=== PATIENT | female | born 1940 | race Caucasian/White ===

== ENCOUNTER 2016-10-17 18:50 | Emergency (ER) | payer MEDICARE, BC ==
[~2016-10-17] VITALS: Ht 175.3 cm; Wt 108.6 kg
[~2016-10-17 18:50] MED LIST: ACET-2321 PO; CALC-144 PO; DEXT15DR10 BOTH EYES; ENOX40DI SQ; INSU100V8 SQ; LEVO50TA4 PO; LOSA100T44 PO; MULT-806 PO; POLY17PO18 PO; PRAV40TA46 PO; SITA100T12 PO; TRAM50TA53 PO; WARF5TAB76 PO
--- OUTSIDE RECORDS SUMMARY | 2016-10-17 18:55 | XMS REPORT | Continuity of Care Document ---
Author Author [facility] Organization [facility] Address Unknown Phone Unavailable Support Name Relationship Address Phone VALERIE FINCH MD Caregiver [address] [place] [address] Unavailable RAFAT THOMPSON MD Caregiver [address] [place] [address] Unavailable RAFAT THOMPSON MD Caregiver [address] [place] [address] Unavailable MAYDA GONZALEZ Next Of Kin [address] [place] [place] [phone] Insurance Providers Guarantor Ashish Gonzalez Address [address] [place] [address] Email [email or web address] Payer [employer] Select Plan 65 Policy Number [id number] Subscriber's Name Ashish Gonzalez Relationship 18 Self Group Number [id number] Payer Medicare Policy Number [id number] Subscriber's Name Ashish Gonzalez Relationship 18 Self Advance Directives Directive Response Recorded Date/Time Ordered Resuscitation Status Full Code 08/15/16 5:17pm Resuscitation Documents on File Yes 08/18/16 8:03am DPOA for Healthcare Only Yes 08/18/16 8:03am Living Will Yes 08/18/16 8:03am Problems Active Problems Medical Problem Onset Date Status DMII (diabetes mellitus, type 2) Unknown Degenerative arthritis of left knee Unknown GERD (gastroesophageal reflux disease) Unknown Chronic Hyperlipemia Unknown Chronic Hypertension Unknown Chronic Hypothyroidism Unknown Chronic LIZZY (obstructive sleep apnea) Unknown Chronic Obesity (BMI 30-39.9) Unknown Chronic Medications Current Home Medications Medication Dose Units Route Directions Days Qty Instructions Start Date Acetaminophen (Tylenol) 325 Mg Tablet 650 Mg Oral Four Times Daily 100 Tablet 08/17/16 Calcium Carbonate/Vitamin D3 (Calcium 600 + D Tablet) 1 Tab Tablet 1 Tab Oral Twice A Day 01/12/12 Dextran 70/Hypromellose (Tears Pure Drops) 15 Ml Drops 1 Drop Both Eyes Daily 08/15/16 Enoxaparin Sodium (Lovenox) 40 Mg/0.4 Ml Inj 40 Mg Sub-Q Every 24 Hours 5 08/17/16 Insulin Glargine,Hum.rec.anlog (Lantus) 100 Unit/Ml Inj 35 Unit Sub-Q Bedtime 08/15/16 Levothyroxine Sodium (Synthroid) 50 Mcg Tablet 1 Tab Oral Daily BEST IF TAKEN BEFORE BREAKFAST 08/15/16 Losartan Potassium 100 Mg Tablet 100 Mg Oral Daily 08/15/16 Multivitamins (Multivitamin) 1 Tab Tablet 1 Tab Oral Daily Polyethylene Glycol 3350 (Healthylax) 17 Gm Powd.pack 17 G Oral Daily 30 Packet 08/17/16 Pravastatin Sodium 40 Mg Tablet 40 Mg Oral Daily 01/12/12 Sitagliptin Phosphate (Januvia) 100 Mg Tablet 100 Mg Oral Daily 08/15/16 Tramadol Hcl (Ultram) 50 Mg Tablet 50-100 Mg Oral Every 4 Hours as needed for Pain 60 Tablet 08/17/16 Warfarin Sodium (Coumadin) 5 Mg Tablet 5 Mg Oral Give At Noon 30 Tablet Take by mouth, 1 time a day (at NOON). 08/20/16 Past Home Medications Medication Directions Ordered Status Acetaminophen (Tylenol Extra Strength) 500 Mg Tablet, 1 Tab Oral As Needed for Pain 08/15/16 Discontinued Aspirin (Aspir 81) 81 Mg Tablet.dr, 81 Mg Oral Daily 07/24/09 Discontinued B Complex , 04/18/11 Discontinued Calcium + D , Twice A Day 04/18/11 Discontinued Coumadin , 5 Mg Oral 04/18/11 Discontinued Glipizide (Glipizide Er) 2.5 Mg/Bottle Tab.osm.24, 2.5 Mg Oral Daily Discontinued Lipitor , 1 Oral Daily 07/24/09 Discontinued Lisinopril , 04/18/11 Discontinued Lisinopril/Hydrochlorothiazide (Lisinopril-Hctz 20-12.5 Tab) 1 Tab Tablet, 1 Tab Oral Daily 06/30/11 Discontinued Meloxicam (Mobic) 15 Mg Tablet, 15 Mg Oral Daily 01/12/12 Discontinued Meloxicam , 15 Mg 04/18/11 Discontinued Metformin Hcl (Glucophage) 850 Mg Tablet, 850 Mg Oral Twice A Day 07/24/09 Discontinued Multivitamin , 04/18/11 Discontinued Multivitamin , 04/18/11 Discontinued Pravastatin , 40 Mg 04/18/11 Discontinued Tylenol , 04/18/11 Discontinued Social History Social History Problem Response Recorded Date/Time Onset Date Status Reason for Hospitalization Left TKA 08/20/2016 3:56pm Not Applicable Not Applicable Chewing Tobacco Status No 08/16/2016 6:30am Not Applicable Not Applicable Hx Substance Use No 08/16/2016 6:30am Not Applicable Not Applicable Hx Alcohol Use No 08/16/2016 6:30am Not Applicable Not Applicable Has the pt used tobacco in the last 12 months No 08/16/2016 6:30am Not Applicable Not Applicable Query Response Start Date Stop Date Smoking Status Never smoker Hospital Discharge Instructions Instructions: Care Instructions: Reason for Hospitalization: Left TKA I was in the hospital because (patient own words): left knee total replacement Discharge Diet: Resume normal diet as tolerated Discharge Activity: Continue the exercises you were given in the hospital three times a day. Your therapist will provide you with a home therapy program prior to your hospital discharge. As you feel stronger, increase the number of repetitions you do in each session. Please check with us before you swim, use a whirlpool, drive or ride a bicycle. Follow Up Appointments: Follow up as scheduled Pending Lab / Results: No Pending Lab Patient Instructions: Driving may be resumed once you are no longer taking narcotic medications and feel you can safely operate the vehicle. You may wish to practice in an empty parking lot at first. Keep in mind that your reaction time will be delayed for up to 6 weeks after surgery. Contact your surgeon for antibiotics to take before having dental work. Wound/Incision Care: In most cases, a Mepilex dressing will be placed at the time of surgery. This dressing will not need to be covered while showering. Leave dressing in place until your follow-up appointment as long as it remains clean, dry and stuck down well around the edges. Call your Doctor if you encounter a problem with your dressing. Please avoid submerging your incision until it is completely healed, once the Mepilex dressing is removed. This includes bathtubs, swimming pools, and hot tubs. DO NOT USE ALCOHOL, PEROXIDE, OR OINTMENTS of any kind on your incision. Pain Scale Utilized to Educate Patient: 0-10 Pain Scale Pain Management/Treatment: Ice packs may be used, and will also help with the pain. You will be given a prescription for pain. Expected Signs/Symptoms: Some swelling around the incision, as well as in your feet and legs is normal. To help with this, elevate your feet on a footstool when sitting in a chair, and do the ankle pumps and circles whenever you are sitting still. Muscle action helps to move collected fluid out of the tissues and improve circulation. Ice packs may be used, and will also help with the pain. Report any persistent swelling, calf tenderness, increase in pain, or pain in the calf with warmth, or redness to your doctor. Notify Physician If: Report any complications to my office immmediately. This includes excessive bleeding, wound breakdown, redness around the wound, uncontrolled pain, or fever over 101 on 3 different measurements. Eat a balanced diet and get plenty of rest. During Business Hours:: If you have any questions or concerns, please call during regular office hours ([phone]). After Business Hours:: If you have any problems or need to reach a physician after hours or on the weekend please call the hospital's main number [phone] to have your physician paged. Condition at time of discharge: Good Plan of Care Discharge Date 08/20/16 4:00pm Disposition 03 TO [facility] NOT [facility] ([facility]) Instructions/Education Provided [facility] Postop Instructions [facility] General Instructions Prescriptions See Medication Section Additional Instructions/Education FOLLOW UP WITH DR THOMPSON 09-05-16 @ 1:00PM Care Plan and Goals See Discharge Instructions Section Functional Status Query Response Date Recorded Mobility Status Ambulatory w/assist August 20, 2016 3:56pm Assistive Devices Cane August 20, 2016 3:56pm Activity Limitations None August 20, 2016 3:56pm Feeding Ability Independent August 20, 2016 3:56pm Toileting Ability Independent August 20, 2016 3:56pm Grooming Ability Independent August 20, 2016 3:56pm Dressing Ability Independent August 20, 2016 3:56pm Driving Ability Dependent August 20, 2016 3:56pm Housework Ability Independent August 20, 2016 3:56pm Meal Preparation Ability Independent August 20, 2016 3:56pm Stair Climbing Ability Independent August 20, 2016 3:56pm Ability to complete ADL's impeded by Impaired Mobility August 20, 2016 3:56pm Cognitive/Perceptual Impairments Impaired vision August 20, 2016 3:56pm Visual Assistive Devices Glasses With patient August 19, 2016 8:00am Hearing Assistive Devices Left hearing aid With patient August 19, 2016 8:00am Preferred Method of Learning Reading Listening August 19, 2016 8:00am Allergies, Adverse Reactions, Alerts Allergen Type Severity Reaction Status Last Updated dextromethorphan HBr Allergy Unknown Active 08/16/16 chlorpheniramine maleate Allergy Unknown Active 08/16/16 Lisinopril Adverse Reaction Unknown COUGH Active 08/16/16 Guaifenesin Allergy Unknown Active 08/16/16 Paregoric Allergy Unknown difficulty breathing Active 08/16/16 opium Allergy Severe Active 08/16/16 Hydrochlorothiazide Adverse Reaction Unknown COUGH Active 08/16/16 Chlorpheniramine Allergy Unknown Active 08/16/16 Immunizations Immunization Event Date Type Not Given Reason Dose Number Lot Number Quantitative Associate VIS Given Pneumococcal conjugate PCV 13 08/16/16 Administered 1 [id number] Pfizer Query Response on File Recorded Date/Time Hx Influenza Vaccination Y 201508/16/16 6:30am Hx Pneumococcal Vaccination No 08/16/16 6:30am Hx Influenza Vaccination Y 201508/16/16 6:30am Influenza Vaccine Hx 04/201608/17/16 1:25pm Vital Signs Acute Vital Signs Vital Response Date/Time Temperature (Fahrenheit) 96.0 deg F (96.8 - 99.1) 08/20/2016 1:30pm Temperature (Calculated Celsius) 35.57375 degrees C (36.0 - 37.3) 08/20/2016 1:30pm Temperature Source Oral 08/20/2016 1:30pm Pulse Rate (adult) 88 bpm (60 - 100) 08/20/2016 1:30pm Respiratory Rate 18 breaths/min (10 - 20) 08/20/2016 1:30pm O2 Sat by Pulse Oximetry 98 % (90 - 100) 08/20/2016 1:35pm Oxygen Delivery Method Room Air 08/20/2016 1:35pm Oxygen Delivery Method Nasal Cannula 08/16/2016 2:00pm Oxygen Flow Rate 1.00 L/min 08/19/2016 11:17pm Blood Pressure 139/61 mm Hg 08/20/2016 1:30pm Blood Pressure Source Automatic Cuff 08/20/2016 1:30pm Height (Feet) 5 feet 08/20/2016 8:09am Height (Inches) 9.00 inches 08/20/2016 8:09am Weight (Kilograms) 112.600 kg 08/20/2016 1:32pm Body Mass Index (BMI) 36.1 08/16/2016 5:51am Results Laboratory Results Test Name Result Units Flags Reference Collection Date/Time Result Date/ Time Comments White Blood Count 8.3 T/MM3 4.5-11.0 08/19/2016 4:08/19/2016 5: 42am Red Blood Count 3.08 M/MM3 L 4.00-5.20 08/19/2016 4:08/19/2016 5: 42am Hemoglobin 10.7 GM/DL L 12-16 08/19/2016 4:08/19/2016 5:42am Hematocrit 32.8 % L 36-46 08/19/2016 4:08/19/2016 5:42am Mean Corpuscular Volume 106.5 UM3 H 80-100 08/19/2016 4:08/19/2016 5:42am Mean Corpuscular Hemoglobin 34.7 UUG H 26-34 08/19/2016 4:2016 5:42am Mean Corpuscular Hemoglobin Concent 32.6 GM/DL 31-37 08/19/2016 4:08/19/2016 5:42am RDW Standard Deviation 44.2 FL 36.9-50.2 08/19/2016 4:08/19/2016 5 :42am Platelet Count 167 T/MM3 130-400 08/19/2016 4:08/19/2016 5:42am Mean Platelet Volume 13.2 UM3 H 9.4-12.4 08/19/2016 4:08/19/2016 5: 42am Prothromb Time International Ratio 1.38 H 0.76-1.04 08/20/2016 4:0908/20/2016 5:22am THERAPUTIC RANGE=2.00-3.00 FOR ANTI-THROMBOSIS THERAPUTIC RANGE=2.50-3.50 FOR IMPLANTED VALVE Icterus Index < 2 0-7 08/18/2016 4:15am 08/18/2016 6:16am Chemistry Specimen Hemolysis < 15 0-25 08/18/2016 4:08/18/2016 6 :16am 0-25: Specimen Exhibited No Hemolysis. Turbidity < 20 0-20 08/18/2016 4:08/18/2016 6:16am Sodium Level 140 MEQ/L 134-144 08/18/2016 4:08/18/2016 6:16am Potassium Level 4.1 MEQ/L 3.6-5 08/18/2016 4:08/18/2016 6:16am Chloride Level 102 MEQ/L 98-107 08/18/2016 4:08/18/2016 6:16am Carbon Dioxide Level 32 MEQ/L H 22-30 08/18/2016 4:08/18/2016 6: 16am Anion Gap 6 MEQ/L 5-08/18/2016 4:08/18/2016 6:16am Blood Urea Nitrogen 13.0 MG/DL 7-08/18/2016 4:08/18/2016 6: 16am Creatinine 0.7 MG/DL 0.7-1.2 08/18/2016 4:08/18/2016 6:16am BUN/Creatinine Ratio 19 RATIO 6-26 08/18/2016 4:08/18/2016 6:16am Glomerular Filtration Rate Calc 82 08/18/2016 4:08/18/2016 6: 16am Glucose Level 142 MG/DL H 65-110 08/18/2016 4:08/18/2016 6:16am Calculated Osmolality 271 MOSM/KG 261-280 08/18/2016 4:08/18/2016 6:16am Calcium Level 9.3 MG/DL 8.4-10.2 08/18/2016 4:1508/18/2016 6:16am Glucometer 154 mg/dL H 65-110 08/20/2016 3:01pm 08/20/2016 3:08pm Name: ASHISH GONZALEZ Iris Unit #: [id number] : 1940 Sex: F Admit Date: 08/16/16 Loc / Svc: SRG Discharge Date: DIAGNOSTIC IMAGING REPORT Report #: [id number] [facility] JOSEPH Benitez Indication: ITS.REASON: POSTOP left knee replacement PROCEDURE: KNEE LEFT 2 VIEW: Encounter: Initial Comparison: None Findings: Postoperative changes of left total knee replacement are seen. There is expected postoperative subcutaneous gas. No evidence of hardware failure or acute fracture. No retained radiopaque surgical instruments or sponges. Overlying material causing artifact. Impression: New left total knee prosthesis without evidence of immediate complication. . Procedures Procedure Status Date Provider(s) Total replacement of left knee joint Completed 08/16/16 RAFAT THOMPSON MD Encounters Encounter Location Arrival/Admit Date Discharge/Depart Date Attending Provider Discharged Inpatient [facility] 08/16/16 5:25am 08/20/16 4:00pm RAFAT THOMPSON MD Registered Clinic [facility] 08/14/16 8:09am ALPHONSO SÁNCHEZ MD Discharged Recurring [facility] 07/30/16 3:00pm 07/30/16 5:00pm MICHAEL NEWTON MD
--- OUTSIDE RECORDS SUMMARY | 2016-10-17 18:55 | XMS REPORT | Continuity of Care Document ---
Author Author [facility] Organization [facility] Address Unknown Phone Unavailable Allergies Medications Problems Procedures Results Encounters ACCT No. Visit Date/Time Discharge Status Pt. Type Provider Facility Loc./Unit Complaint [id number] 09/24/2013 14:09:00 09/24/2013 23 :59:59 CLS Outpatient [id number] 09/03/2013 13:36:00 09/03/2013 23 :59:59 CLS Outpatient [id number] 08/10/2013 11:54:00 08/10/2013 23 :59:59 CLS Outpatient [id number] 06/01/2013 10:56:00 06/01/2013 23 :59:59 CLS Outpatient
--- OUTSIDE RECORDS SUMMARY | 2016-10-17 18:56 | XMS REPORT | Referral Summary ---
Author Author [facility] Organization [facility] Address Unknown Phone Unavailable Care Team Providers Care Mold Sheet Cleaner Name Role Phone AmanuelvalerieBlaze Primary Care Physician [phone] Encounter VC Date(s): 07/10/16 - 07/10/16 [facility] [address] [place] [id number] Discharge Diagnosis: Benign essential hypertension (disorder) Discharge Diagnosis: DM II [Diabetes mellitus type II] WO CMP NT [facility] Discharge Diagnosis: Thyroid disease/goiter Discharge Disposition: 01-Home or Self Care Attending Physician: Sujata Lo PA-C Admitting Physician: Sujata Lo PA-C Vital Signs Most recent to 1 oldest [Reference Range]: Blood Pressure 182/84 mmHg [90-140/60-90 mmHg] *HI* (07/10/16 8:09 AM) Problem List Condition Effective Dates Status Health Status Informant Acute low back Active pain(Confirmed) Alopecia(Confirmed) Active Benign essential Active hypertension (disorder)(Confirmed ) BPV (benign Active positional vertigo)(Confirmed) CTS (carpal tunnel Active syndrome)(Confirmed) Cataracts(Confirmed) 2000 Active DM II [Diabetes Active mellitus type II] WO CMP NT [facility](Confirmed) Blood Clots Active Lungs/Legs(Confirmed )1 Thyroid Active disease/goiter(Confi rmed) GERD without Active esophagitis(Confirme d) buttermaker continuous churn current Active use of anticoagulant(Confir med) Hearing Active Loss(Confirmed) Acute pain of right Active hip(Confirmed) Hyperthyroidism(Conf Active irmed) Adult Active hypothyroidism(Confi rmed) Obstructive sleep Active apnea, adult(Confirmed) Dermatophytosis of Active nail(Confirmed) Osteoarthrosis(Confi 09/1997 Active rmed) Overweight(Confirmed Active ) Pain in Active limb(Confirmed) Pure Active hypercholesterolemia (disorder)(Confirmed ) Sensorineural Active hearing loss, unspecified(Confirme d) Chicken Active pox(Confirmed) 1LONG TERM CURRENT USE ANTICOAGUL. See Conversion Document Allergies, Adverse Reactions, Alerts Substance Reaction Severity Status hydrochlorothiazide cough Active lisinopril cough Active Medications amoxicillin 500 mg oral capsule See Instructions, Take 6 caps one hour before dental procedure and 3 caps six hours after procedure, # 9 caps, 1 Refill(s), other reason (Rx) Start Date: 04/13/16 Status: Ordered Aspir 81 81 mg, Oral, Daily, 0 Refill(s) Start Date: 12/18/13 Status: Ordered Calcium 600+D 1 tabs, Oral, Daily, 0 Refill(s) Start Date: 12/18/13 Status: Ordered Januvia 100 mg oral tablet 100 mg 1 tabs, Oral, Daily, # 30 tabs, 0 Refill(s), samples given to patient (Rx ) Start Date: 07/10/16 Status: Ordered Lantus 100 units/mL subcutaneous solution See Instructions, INJECT 35 UNITS SUB-Q AT BEDTIME, # 10 mL, [facility]: [facility] Start Date: 07/03/16 Status: Ordered levothyroxine 50 mcg (0.05 mg) oral tablet See Instructions, TAKE 1 TABLET BY MOUTH DAILY, # 90 tabs, 1 Refill(s), eRx: [facility] , TAKE 1 TABLET BY MOUTH DAILY Start Date: 04/09/16 Status: Ordered losartan 100 mg oral tablet See Instructions, TAKE 1 TABLET BY MOUTH EVERY DAY, # 90 tabs, eRx: [facility] , TAKE 1 TABLET BY MOUTH EVERY DAY Start Date: 05/01/16 Status: Ordered meloxicam 7.5 mg oral tablet See Instructions, TAKE 1 TABLET BY MOUTH DAILY NEEDED FOR PAIN MILD(1-3), # 90 tabs, 1 Refill(s), Pharmacy: [facility] , TAKE 1 TABLET BY MOUTH DAILY NEEDED FOR PAIN MILD(1-3) Start Date: 03/06/16 Status: Ordered Miscellaneous DME DME Item FREESTYLE LITE TEST STRIPS CHECK BLOOD SUGARS 3 TIMES WEEKLY DX: E11.9, See Instructions, # 1 boxes, 2 Refill(s), Pharmacy: [facility] [id number], FREESTYLE LITE TEST STRIPS; CHECK BLOOD SUGARS 3 TIMES WEEKLY; DX: E11.9 , Supply Start Date: 09/02/15 Status: Ordered multivitamin Daily, 0 Refill(s) Start Date: 01/06/15 Status: Ordered omeprazole 20 mg oral delayed release capsule 20 mg 1 caps, Oral, Daily, # 90 caps, 1 Refill(s), Pharmacy: [facility] [id number], 1 caps Oral Daily Start Date: 03/06/16 Status: Ordered pravastatin 40 mg oral tablet See Instructions, TAKE 1 TABLET BY MOUTH AT BEDTIME DAILY, # 90 tabs, 1 Refill(s ), Pharmacy: [facility] [id number], TAKE 1 TABLET BY MOUTH AT BEDTIME DAILY Start Date: 03/06/16 Status: Ordered Motion DisplaysS SYR/NDL 29G 0.5ML U/F See Instructions, USE TO INJECT LANTUS AT BEDTIME, # 100 unknown unit, eRx: [facility] [id number], USE TO INJECT LANTUS AT BEDTIME Start Date: 05/21/16 Status: Ordered Results Chemistry Most recent to 1 oldest [Reference Range]: Sodium Lvl [135-144 144 mEq/L mEq/L] (07/10/16 9:08 AM) Potassium Lvl 4.5 mEq/L [3.5-5.2 mEq/L] (07/10/16 9:08 AM) Chloride [99-111 106 mEq/L mEq/L] (07/10/16 9:08 AM) CO2 [22-31 mEq/L] 30 mEq/L (07/10/16 9:08 AM) AGAP [3-20] 8 (07/10/16 9:08 AM) BUN [10-20 mg/dL] 15 mg/dL (07/10/16 9:08 AM) Glucose Lvl [70-99 173 mg/dL mg/dL] *HI* (07/10/16 9:08 AM) Creatinine Lvl 0.78 mg/dL [0.57-1.11 mg/dL] (07/10/16 9:08 AM) eGFR [>60 mL/min] >60 mL/min 1 (07/10/16 9:08 AM) Calcium Lvl 9.4 mg/dL [8.9-10.5 mg/dL] (07/10/16 9:08 AM) Albumin Lvl [3.4-4.8 3.8 gm/dL gm/dL] (07/10/16 9:08 AM) Total Protein 6.0 gm/dL [6.0-7.6 gm/dL] (07/10/16 9:08 AM) Globulin [1.8-4.0 2.2 gm/dL gm/dL] (07/10/16 9:08 AM) ALT [0-55 U/L] 25 U/L (07/10/16 9:08 AM) AST [5-34 U/L] 23 U/L (07/10/16 9:08 AM) Alk Phos [40-150 59 U/L U/L] (07/10/16 9:08 AM) Bili Total [0.2-1.2 0.7 mg/dL mg/dL] (07/10/16 9:08 AM) TSH with Reflex Free 1.18 T4 [0.35-4.94] (07/10/16 9:08 AM) Hgb A1c [4.1-5.6 %] 6.9 % *HI* (07/10/16 9:08 AM) eAvg Glucose 151.3 mg/dL (07/10/16 9:08 AM) 1Result Comment: Multiply eGFR results by 1.21 for race. Immunizations Given and Recorded Vaccine Date Status Refusal Reason tetanus/diphth/pertuss (Tdap) adult/adol 04/19/15 Given hepatitis B adult vaccine 01/25/94 Recorded hepatitis B adult vaccine 08/31/93 Recorded hepatitis B adult vaccine 07/31/93 Recorded influenza virus vaccine, inactivated 03/06/16 Given influenza virus vaccine, inactivated 04/19/15 Given influenza virus vaccine, inactivated1 04/13/14 Recorded influenza virus vaccine, live 04/06/13 Given influenza virus vaccine, live 04/24/12 Given mumps-rubella virus vaccine 05/04/70 Recorded pneumococcal 13-valent conjugate vaccine 08/30/14 Given pneumococcal 23-polyvalent vaccine 11/14/09 Recorded rubella virus vaccine 02/01/75 Recorded tetanus-diphth toxoids (Td) adult/adol 05/08/05 Recorded 1Location History: See scanned document Procedures Procedure Date Related Diagnosis Body Site Monafilament Examination 08/23/11 Lid Surgery - lower 09/2005 Lid Surgery - upper 03/2005 gall bladder 2004 Carpal tunnel release1 1997 Carpal tunnel release Epistaxis Eye Lid Surgeries Facial Surgery Hysterectomy Hysterectomy Tonsillectomy 1Both Hands Social History Social History Type Response Smoking Status Never smoker Assessment and Plan Extracted from: Title: Office Visit Note- T2DM Author: Sujata Lo PA-C Date: 07/10 Assessment/Plan Benign essential hypertension (disorder) Will check some labs today. BP was elevated today. Continue to monitor. Ordered: Office Visit Level 5 Est 16490 DM II [Diabetes mellitus type II] WO CMP NT [facility] I spent along time talking with the pt about her DM. I think she is in need of mealtime insulin, but she does notwant to do more injections or check her BG more often than a couple times a day like she is doing now. Talked with her about differentoral medications that are available, which may help some with her blood sugars, but I do not expect them to get her A1C down to acceptable range. Sheseems to be doing well with her diet at this time, and is to continue seeing the RD.The pt does want to try another oral medication. After some discussion, she would like to try Januvia. Provided the pt with samples for 3 weeks, which is enough to get her through until she sees Dr. Mojica on 08/03/16. D/w pt that at that time, he may decide if it is helping with her BG levels, or if she needs to start on Novolog/Humalog. Pt is agreeable and voiced understanding. A1C today. Ordered: sitaGLIPtin, 100 mg 1 tabs, Oral, Daily, # 30 tabs, 0 Refill(s), samples given to patient (Rx) Hemoglobin A1c Office Visit Level 5 Est 47383 Thyroid disease/goiter Will also check TSH today as well,since she has been having issues losing weight. Ordered: Office Visit Level 5 Est 24444
--- OUTSIDE RECORDS SUMMARY | 2016-10-17 18:56 | XMS REPORT | Referral Summary ---
Author Author [facility], [facility] Organization [facility] Address Unknown Phone Unavailable Care Team Providers Care Senior Warehouse Clerk Name Role Phone Blaze Mojica Primary Care Physician [phone] Encounter Date(s): 08/03/16 - 08/03/16 [facility] [place] [id number] Discharge Diagnosis: Type 2 diabetes mellitus with diabetic neuropathy, with long-term current use of insulin Discharge Diagnosis: Benign essential hypertension (disorder) Discharge Diagnosis: GERD without esophagitis Discharge Diagnosis: Abnormal EKG Discharge Diagnosis: Osteoarthritis of left knee Discharge Diagnosis: Preop examination Discharge Diagnosis: Medication monitoring encounter Discharge Diagnosis: Obstructive sleep apnea, adult Discharge Diagnosis: Thyroid disease/goiter Discharge Diagnosis: Pure hypercholesterolemia (disorder) Discharge Diagnosis: H/O thromboembolism Discharge Disposition: 01-Home or Self Care Attending Physician: Michael Mojica MD Admitting Physician: Michael Mojica MD Vital Signs Most recent to 1 oldest [Reference Range]: Temperature Tympanic 36.9 degC [36.6-38.1 degC] (08/03/16 9:08 AM) Peripheral Pulse 86 bpm Rate [60-100 bpm] (08/03/16 9:08 AM) Respiratory Rate 15 br/min [14-20 br/min] (08/03/16 9:08 AM) Blood Pressure 148/78 mmHg [90-140/60-90 mmHg] *HI* (08/03/16 9:08 AM) SpO2 98 % (08/03/16 9:08 AM) Problem List Condition Effective Dates Status Health Status Informant Acute low back Active pain(Confirmed) Alopecia(Confirmed) Active Benign essential Active hypertension (disorder)(Confirmed ) BPV (benign Active positional vertigo)(Confirmed) CTS (carpal tunnel Active syndrome)(Confirmed) Cataracts(Confirmed) 2000 Active DM II [Diabetes Active mellitus type II] WO CMP NT [facility](Confirmed) Blood Clots Active Lungs/Legs(Confirmed )1 Thyroid Active disease/goiter(Confi rmed) GERD without Active esophagitis(Confirme d) alf current Active use of anticoagulant(Confir med) Hearing [...] 1 tabs, Oral, Daily, # 30 tabs, 3 Refill(s), Pharmacy: [id number] Start Date: 08/03/16 Status: Ordered Lantus 100 units/mL subcutaneous solution See Instructions, INJECT 35 UNITS SUB-Q AT BEDTIME, # 10 mL, eRx: [facility] [id number] Start Date: 07/30/16 Status: Ordered levothyroxine 50 mcg (0.05 mg) oral tablet See Instructions, TAKE 1 TABLET BY MOUTH DAILY, # 90 tabs, 1 Refill(s), eRx: [facility] [id number], TAKE 1 TABLET BY MOUTH DAILY Start Date: 04/09/16 Status: Ordered losartan 100 mg oral tablet See Instructions, TAKE 1 TABLET BY MOUTH EVERY DAY, # 90 tabs, eRx: [facility] [id number] Start Date: 07/27/16 Status: Ordered losartan 100 mg oral tablet See Instructions, TAKE 1 TABLET BY MOUTH EVERY DAY, # 90 tabs, eRx: [facility] [id number] Start Date: 07/27/16 Status: Ordered Miscellaneous DME DME Item FREESTYLE LITE TEST STRIPS CHECK BLOOD SUGARS 3 TIMES WEEKLY DX: E11.9, See Instructions, # 1 boxes, 2 Refill(s), Pharmacy: [facility] [id number], FREESTYLE LITE TEST STRIPS; CHECK BLOOD SUGARS 3 TIMES WEEKLY; DX: E11.9 , Supply Start Date: 09/02/15 Status: Ordered multivitamin Daily, 0 Refill(s) Start Date: 01/06/15 Status: Ordered pravastatin 40 mg oral tablet See Instructions, TAKE 1 TABLET BY MOUTH AT BEDTIME DAILY, # 90 tabs, 1 Refill(s ), Pharmacy: [facility] [id number], TAKE 1 TABLET BY MOUTH AT BEDTIME DAILY Start Date: 03/06/16 Status: Ordered Knowledge Factor SYR/NDL 29G 0.5ML U/F See Instructions, USE TO INJECT LANTUS AT BEDTIME, # 100 unknown unit, eRx: [facility] [id number], USE TO INJECT LANTUS AT BEDTIME Start Date: 05/21/16 Status: Ordered Results Hematology Most recent to 1 oldest [Reference Range]: WBC [4.8-10.8 10.7 10*3/uL 10*3/uL] (08/03/16 11:03 AM) RBC [4.00-5.20] 4.42 (08/03/16 11:03 AM) Hgb [12.0-16.0 14.9 gm/dL gm/dL] (08/03/16 11:03 AM) Hct [37.0-47.0 %] 46.3 % (08/03/16 11:03 AM) MCV [82.0-99.0 fL] 104.8 fL *HI* (08/03/16 11:03 AM) MCH [27.0-32.0 pg] 33.7 pg *HI* (08/03/16 11:03 AM) MCHC [32.0-36.0 32.2 gm/dL gm/dL] (08/03/16 11:03 AM) RDW [11.5-14.5 %] 12.3 % (08/03/16 11:03 AM) Platelet [150-400 256 10*3/uL 10*3/uL] (08/03/16 11:03 AM) MPV [8.8-14.8 fL] 12.3 fL (08/03/16 11:03 AM) Immature 0.2 % Granulocytes (08/03/16: AM) [0.0-1.0 %] Neutrophils [51-75 60 % %] (08/03/16 11:03 AM) Lymphocytes [20-46 29 % %] (08/03/16:03 AM) Monocytes [4-11 %] 9 % (08/03/16: AM) Eosinophils [0-4 %] 2 % (08/03/16 AM) Basophils [0-2 %] 0 % (08/03/16:03 AM) Neutro Absolute 6.45 [1.90-7.00] (08/03/16:03 AM) Lymph Absolute 3.07 [0.80-3.30] (08/03/16:03 AM) [place] Absolute 0.95 [0.30-1.00] (08/03/16: AM) Eos Absolute 0.21 [0.00-0.50] (08/03/16 11:03 AM) Baso Absolute 0.04 [0.00-0.20] (08/03/16 11:03 AM) Chemistry Most recent to 1 oldest [Reference Range]: Sodium Lvl [135-144 145 mEq/L mEq/L] *HI* (08/03/16:03 AM) Potassium Lvl 4.9 mEq/L [3.5-5.2 mEq/L] (08/03/16: AM) Chloride [99-111 106 mEq/L mEq/L] (08/03/16: AM) CO2 [22-31 mEq/L] 28 mEq/L (08/03/16 11:03 AM) AGAP [3-20] 11 (08/03/16 11:03 AM) BUN [10-20 mg/dL] 17 mg/dL (08/03/16 11:03 AM) Glucose Lvl [70-99 110 mg/dL mg/dL] *HI* (08/03/16 11:03 AM) Creatinine Lvl 0.84 mg/dL [0.57-1.11 mg/dL] (08/03/16 11:03 AM) eGFR [>60 mL/min] >60 mL/min 1 (08/03/16 11:03 AM) Calcium Lvl 10.4 mg/dL [8.9-10.5 mg/dL] (08/03/16 11:03 AM) 1Result Comment: Multiply eGFR results by [...] smoker Assessment and Plan Extracted from: Title: New Patient Visit Author: Michael Mojica MD Date: 08/03/16 Impression and Plan Diagnosis Benign essential hypertension (disorder) ([id number]-HG I10, Discharge, Medical). GERD without esophagitis (CBJ71-DJ K21.9, Discharge, Medical). H/O thromboembolism (UUT75-NN Z86.718, Discharge, Medical). Medication monitoring encounter (BMJ54-NK Z51.81, Discharge, Medical). Obstructive sleep apnea, adult (SKV47-AH G47.33, Discharge, Medical). Osteoarthritis of left knee (DHT13-HA M17.9, Discharge, Medical). Preop examination (GJE88-BL Z01.818, Discharge, Medical). Pure hypercholesterolemia (disorder) (OUH85-QO E78.00, Discharge, Medical). Thyroid disease/goiter (NZK17-VD E07.9, Discharge, Medical). Type 2 diabetes mellitus with diabetic neuropathy, with long-term current use of insulin (GLT04-UR E11.40, Discharge, Medical). Abnormal EKG (ZJB43-SS R94.31, Discharge, Medical). Orders Orders (Selected) Outpatient Orders Future (On Hold) Albumin/Creatinine Ratio, Urine: BMP: CBC w/ Differential: .
--- OUTSIDE RECORDS SUMMARY | 2016-10-17 18:57 | XMS REPORT | Referral Summary ---
[facility] Address Unknown Phone Unavailable Care Team Providers Care Manager Chemical Name Role Phone Brooke Kelley Primary Care Physician [phone] Encounter Date(s): 04/13/16 - 04/13/16 [facility] [place] [place] [id number] Discharge Diagnosis: Acute low back pain Discharge Diagnosis: Benign essential hypertension (disorder) Discharge Diagnosis: Pure hypercholesterolemia (disorder) Discharge Diagnosis: GERD without esophagitis Discharge Diagnosis: Obstructive sleep apnea, adult Discharge Diagnosis: Alopecia Discharge Diagnosis: DM II [Diabetes mellitus type II] WO CMP NT [facility] Discharge Diagnosis: Adult hypothyroidism Discharge Disposition: 01-Home or Self Care Attending Physician: Branden Kelley MD Admitting Physician: Branden Kelley MD Vital Signs Most recent to 1 oldest [Reference Range]: Peripheral Pulse 76 bpm Rate [60-100 bpm] (04/13/16 10:36 AM) Blood Pressure 132/80 mmHg [90-140/60-90 mmHg] (04/13/16 10:36 AM) SpO2 96 % (04/13/16 10:36 AM) Problem List Condition Effective Dates Status Health Status Informant Acute low back Active pain(Confirmed) Alopecia(Confirmed) Active Benign essential Active hypertension (disorder)(Confirmed ) BPV (benign Active positional vertigo)(Confirmed) CTS (carpal tunnel Active syndrome)(Confirmed) Cataracts(Confirmed) 2000 Active DM II [Diabetes Active mellitus type II] WO CMP NT [facility](Confirmed) Blood Clots Active Lungs/Legs(Confirmed )1 Thyroid Active disease/goiter(Confi rmed) GERD without Active esophagitis(Confirme d) intermediate current Active use of anticoagulant(Confir med) Hearing [...] 0 Refill(s) Start Date: 12/18/13 Status: Ordered Lantus 100 units/mL subcutaneous solution See Instructions, inject 35 units SUBCUTANEOUSLY AT BEDTIME, # 10 mL, 1 Refill(s ), Pharmacy: [facility] [id number], inject 35 units SUBCUTANEOUSLY AT BEDTIME Start Date: 03/06/16 Status: Ordered levothyroxine 50 mcg (0.05 mg) oral tablet See Instructions, TAKE 1 TABLET BY MOUTH DAILY, # 90 tabs, 1 Refill(s), eRx: [facility] [id number], TAKE 1 TABLET BY MOUTH DAILY Start Date: 04/09/16 Status: Ordered losartan 100 mg oral tablet See Instructions, TAKE 1 TABLET BY MOUTH EVERY DAY, # 90 tabs, eRx: [facility] [id number], TAKE 1 TABLET BY MOUTH EVERY DAY Start Date: 02/03/16 Status: Ordered meloxicam 7.5 mg oral tablet See Instructions, TAKE 1 TABLET BY MOUTH DAILY NEEDED FOR PAIN MILD(1-3), # 90 tabs, 1 Refill(s), Pharmacy: [facility] [id number], TAKE 1 TABLET BY MOUTH DAILY NEEDED FOR PAIN MILD(1-3) Start Date: 03/06/16 Status: Ordered Miscellaneous DME DME Item FREESTYLE LITE TEST STRIPS CHECK BLOOD SUGARS 3 TIMES WEEKLY DX: E11.9, See Instructions, # 1 boxes, 2 Refill(s), Pharmacy: [facility] [id number], FREESTYLE LITE TEST STRIPS; CHECK BLOOD SUGARS 3 TIMES WEEKLY; DX: E11.9 , Supply Start Date: 09/02/15 Status: Ordered multivitamin Daily, 0 Refill(s) Start Date: 01/06/15 Status: Ordered omeprazole 20 mg oral delayed release capsule 20 mg 1 caps, Oral, Daily, # 90 caps, 1 Refill(s), Pharmacy: [facility] [id number], 1 caps Oral Daily Start Date: 03/06/16 Status: Ordered pravastatin 40 mg oral tablet See Instructions, TAKE 1 TABLET BY MOUTH AT BEDTIME DAILY, # 90 tabs, 1 Refill(s ), Pharmacy: [facility] [id number], TAKE 1 TABLET BY MOUTH AT BEDTIME DAILY Start Date: 03/06/16 Status: Ordered [employer] SYR/NDL 29G 0.5ML U/F See Instructions, USE TO INJECT LANTUS AT BEDTIME, # 100 unknown unit, 2 Refill( s), eRx: [facility] [id number], USE TO INJECT LANTUS AT BEDTIME Start Date: 12/16/14 Status: Ordered Results No data available for this section Immunizations Vaccine Date Refusal Reason tetanus/diphth/pertuss (Tdap) adult/adol 04/19/15 hepatitis B adult vaccine 01/25/94 hepatitis B adult vaccine 08/31/93 hepatitis B adult vaccine 07/31/93 influenza virus vaccine, inactivated 03/06/16 influenza virus vaccine, inactivated 04/19/15 influenza virus vaccine, inactivated1 04/13/14 influenza virus vaccine, live 04/06/13 influenza virus vaccine, live 04/24/12 mumps-rubella virus vaccine 05/04/70 pneumococcal 13-valent conjugate vaccine 08/30/14 pneumococcal 23-polyvalent vaccine 11/14/09 rubella virus vaccine 02/01/75 tetanus-diphth toxoids (Td) adult/adol 05/08/05 1Location History: See scanned document Procedures Procedure Date Related Diagnosis Body Site Monafilament Examination 08/23/11 Lid Surgery - lower 09/2005 Lid Surgery - upper 03/2005 gall bladder 2004 Carpal tunnel release1 1997 Carpal tunnel release Epistaxis Eye Lid Surgeries Facial Surgery Hysterectomy Hysterectomy Tonsillectomy 1Both Hands Social History Social History Type Response Smoking Status Never smoker Assessment and Plan Extracted from: Title: Ambulatory Patient Education Author: Branden Kelley MD Date: Family Medicine Back Exercises Back exercises help treat and prevent back injuries. The goal of back exercises is to increase the strength of your abdominal and back muscles and the flexibility of your back. These exercises should be started when you no longer have back pain. Back exercises include: Pelvic Tilt. Lie on your back with your knees bent. Tilt your pelvis until the lower part of your back is against the floor. Hold this position 5 to 10 sec and repeat 5 to 10 times. Knee to Chest. Pull first 1 knee up against your chest and hold for 20 to 30 seconds, repeat this with the other knee, and then both knees. This may be done with the other leg straight or bent, whichever feels better. Sit-Ups or Curl-Ups. Bend your knees 90 degrees. Start with tilting your pelvis, and do a partial, slow sit-up, lifting your trunk only 30 to 45 degrees off the floor. Take at least 2 to 3 seconds for each sit-up. Do not do sit-ups with your knees out straight. If partial sit-ups are difficult, simply do the above but with only tightening your abdominal muscles and holding it as directed. Hip-Lift. Lie on your back with your knees flexed 90 degrees. Push down with your feet and shoulders as you raise your hips a couple inches off the floor; hold for 10 seconds, repeat 5 to 10 times. Back arches. Lie on your stomach, propping yourself up on bent elbows. Slowly press on your hands, causing an arch in your low back. Repeat 3 to 5 times. Any initial stiffness and discomfort should lessen with repetition over time. Shoulder-Lifts. Lie face down with arms beside your body. Keep hips and torso pressed to floor as you slowly lift your head and shoulders off the floor. Do not overdo your exercises, especially in the beginning. Exercises may cause you some mild back discomfort which lasts for a few minutes; however, if the pain is more severe, or lasts for more than 15 minutes, do not continue exercises until you see your caregiver. Improvement with exercise therapy for back problems is slow. See your caregivers for assistance with developing a proper back exercise program. This information is not intended to replace advice given to you by your health care provider. Make sure you discuss any questions you have with your health care provider. Document Released: 08/01/2005 Document Revised: 09/15/2012 Document Reviewed: [employer] Patient Information 2016 [employer]. No follow up information was provided. Extracted from: Title: Office Visit Note Author: Branden Kelley MD Date: 04/13/16 Assessment/Plan Acute low back pain The patient's issue is nearly or completely resolved. There is no further issues or testing desired by them at this time. Seeing Dr. Abreu. Adult hypothyroidism This issue was reviewed, appears stable, and current therapy continued except as mentioned. Appropriate lab was reviewed from the most recent appropriate entry and lab was ordered if needed in the cpoe/nursing orders, and follow up recommended generally in 90 days and no later then six months. Lab stable. Alopecia To [facility] when interested. We discussed several options for treatment for this condition. The patient declined any changes or other treatments at this time. Benign essential hypertension (disorder) This issue was reviewed, appears stable, and current therapy continued except as mentioned. Appropriate lab was reviewed from the most recent appropriate entry and lab was ordered if needed in the cpoe/nursing orders, and follow up recommended generally in 90 days and no later then six months. The patient reports their blood pressure has been stable at home and is not having any significant or related problems. There has been no chest pain, chest pressure, soa/segal. DM II [Diabetes mellitus type II] WO CMP NT [facility] The patient was notified for the need for regular quarterly f/u of their diabetes. Further any pertinent medication, supplies, etc were refilled. Additionally, they are to have annual eye exams, foot exams, and regular care. Lab stable. GERD without esophagitis This issue was reviewed, appears stable, and current therapy continued except as mentioned. Appropriate lab was reviewed from the most recent appropriate entry and lab was ordered if needed in the cpoe/nursing orders, and follow up recommended generally in 90 days and no later then six months. Obstructive sleep apnea, adult This issue was reviewed, appears stable, and current therapy continued except as mentioned. Appropriate lab was reviewed from the most recent appropriate entry and lab was ordered if needed in the cpoe /nursing orders, and follow up recommended generally in 90 days and no later then six months. Assessment/Plan 1.LIZZY on CPAP 75-year-old female appears to have well-controlledmoderately severe obstructive sleep apnea after a series ofpast including most recent CPAP retitration. By downloadinformation and her subjective reporting,no changes are requiredat this time. However, she does have an APAP system and I do recommend taking advantage of that unit byreturning her to apressure bracket ofAPAP 9-13 cm. This well allow for some slight adjustments in pressure based on demandand provide additional flexibility in thethat the continued obstructive eventsseen at the end of her CPAP re-titration were not due to the leakuncovered at that time. I'm comfortable enough having her return on an annual basis, though she is encouraged to call back if she has any issues with her system or its interface. Use of CPAP/BiPAP is encouraged for all sleep. The patient is encouraged to replace CPAP supplies regularly and keep a sanitary system. The patient and any accompanying family expressed understanding and agreement with this plan after having had adequate time to ask and have questions answered. [1] Pure hypercholesterolemia (disorder) This issue was reviewed, appears stable, and current therapy continued except as mentioned. Appropriate lab was reviewed from the most recent appropriate entry and lab was ordered if needed in the cpoe/nursing orders, and follow up recommended generally in 90 days and no later then six months. Lab stable.
--- OUTSIDE RECORDS SUMMARY | 2016-10-17 18:57 | XMS REPORT | Referral Summary ---
Author Author [facility] Organization [facility] Address Unknown Phone Unavailable Care Team Providers Care Bereavement Counselor Name Role Phone Blaze Mojica Primary Care Physician [phone] Encounter VC Date(s): 09/03/16 - 09/03/16 [facility] [place] [id number]- Discharge Diagnosis: Postoperative anemia Discharge Diagnosis: Hyperthyroidism Discharge Diagnosis: Urine frequency Discharge Diagnosis: S/P left knee surgery Discharge Diagnosis: Benign essential hypertension (disorder) Discharge Diagnosis: DM II [Diabetes mellitus type II] WO CMP NT [facility]CNTR Discharge Disposition: 01-Home or Self Care Attending Physician: Michael Mojica MD Admitting Physician: Michael Mojcia MD Vital Signs Most recent to 1 oldest [Reference Range]: Temperature Oral 36.7 degC [35.8-37.3 degC] (09/03/16 10:21 AM) Peripheral Pulse 80 bpm Rate [60-100 bpm] (09/03/16 10:21 AM) Respiratory Rate 16 br/min [14-20 br/min] (09/03/16 10:21 AM) Blood Pressure 146/74 mmHg [90-140/60-90 mmHg] *HI* (09/03/16 10:21 AM) Problem List Condition Effective Dates Status Health Status Informant Acute low back Active pain(Confirmed) Alopecia(Confirmed) Active Benign essential Active hypertension (disorder)(Confirmed ) BPV (benign Active positional vertigo)(Confirmed) CTS (carpal tunnel Active syndrome)(Confirmed) Cataracts(Confirmed) 2000 Active DM II [Diabetes Active mellitus type II] WO CMP NT [facility](Confirmed) Blood Clots Active Lungs/Legs(Confirmed )1 Thyroid Active disease/goiter(Confi rmed) GERD without Active esophagitis(Confirme d) prison current Active use of anticoagulant(Confir med) Hearing [...] hydrochlorothiazide cough Active lisinopril cough Active Medications acetaminophen 650 mg, Oral, QID, 0 Refill(s) Start Date: 08/22/16 Status: Ordered amoxicillin 500 mg oral capsule See Instructions, Take 6 caps one hour before dental procedure and 3 caps six hours after procedure, # 9 caps, 1 Refill(s), other reason (Rx) Start Date: 04/13/16 Status: Ordered Calcium 600+D 1 tabs, Oral, BID, 0 Refill(s) Start Date: 12/18/13 Status: Ordered Januvia 100 mg oral tablet 100 mg 1 tabs, Oral, Daily, # 30 tabs, 3 Refill(s), Pharmacy: [facility] [id number] Start Date: 08/03/16 Status: Ordered Lantus 100 units/mL subcutaneous solution See Instructions, INJECT 35 UNITS SUB-Q AT BEDTIME, # 10 mL, eRx: [facility] [id number] Start Date: 07/30/16 Status: Ordered levothyroxine 50 mcg (0.05 mg) oral tablet See Instructions, TAKE 1 TABLET BY MOUTH DAILY, # 90 tabs, 1 Refill(s), eRx: [facility] [id number], TAKE 1 TABLET BY MOUTH DAILY Start Date: 04/09/16 Status: Ordered losartan 100 mg oral tablet See Instructions, TAKE 1 TABLET BY MOUTH EVERY DAY, # 90 tabs, eRx: [facility] [id number] Start Date: 07/27/16 Status: Ordered losartan 100 mg oral tablet See Instructions, TAKE 1 TABLET BY MOUTH EVERY DAY, # 90 tabs, eRx: [facility] [id number] Start Date: 07/27/16 Status: Ordered Lovenox 40 mg/0.4 mL injectable solution 40 mg, SubCutaneous, Daily, 0 Refill(s) Start Date: 08/22/16 Status: Ordered MiraLax 17 g, Oral, Daily, 0 Refill(s) Start Date: 08/22/16 Status: Ordered Miscellaneous DME DME Item FREESTYLE LITE TEST STRIPS CHECK BLOOD SUGARS 3 TIMES WEEKLY DX: E11.9, See Instructions, # 100 Each, 2 Refill(s), Pharmacy: [facility] [id number], FREESTYLE LITE TEST STRIPS; CHECK BLOOD SUGARS 3 TIMES WEEKLY; DX : E11.9, Supply Start Date: 08/07/16 Status: Ordered multivitamin Daily, 0 Refill(s) Start Date: 01/06/15 Status: Ordered nystatin 100,000 units/g topical powder 1 brinda, Topical, BID, # 15 g, 1 Refill(s), Pharmacy: [facility] [id number] Start Date: 08/07/16 Stop Date: 09/04/16 Status: Ordered pravastatin 40 mg oral tablet See Instructions, TAKE 1 TABLET BY MOUTH AT BEDTIME DAILY, # 90 tabs, 1 Refill(s ), Pharmacy: [facility] [id number], TAKE 1 TABLET BY MOUTH AT BEDTIME DAILY Start Date: 03/06/16 Status: Ordered Tears Naturale 1 drops, Eye-Both, Daily, 0 Refill(s) Start Date: 08/22/16 Status: Ordered traMADol 50 mg oral tablet 1-2 tabs, Oral, q4hr, as needed for pain, 0 Refill(s) Start Date: 08/22/16 Status: Ordered [employer] SYR/NDL 29G 0.5ML U/F See Instructions, USE TO INJECT LANTUS AT BEDTIME, # 100 unknown unit, eRx: [facility] [id number], USE TO INJECT LANTUS AT BEDTIME Start Date: 05/21/16 Status: Ordered warfarin 5 mg oral tablet 5 mg 1 tabs, Oral, Daily, 0 Refill(s) Start Date: 08/22/16 Status: Ordered Results Hematology Most recent to 1 oldest [Reference Range]: WBC [4.8-10.8 10.1 10*3/uL 10*3/uL] (09/03/16 11:15 AM) RBC [4.00-5.20] 4.05 (09/03/16 11:15 AM) Hgb [12.0-16.0 13.7 gm/dL gm/dL] (09/03/16:15 AM) Hct [37.0-47.0 %] 43.0 % (09/03/16:15 AM) MCV [82.0-99.0 fL] 106.2 fL *HI* (09/03/16:15 AM) MCH [27.0-32.0 pg] 33.8 pg *HI* (09/03/16:15 AM) MCHC [32.0-36.0 31.9 gm/dL gm/dL] *LOW* (09/03/16:15 AM) RDW [11.5-14.5 %] 13.1 % (09/03/16 11:15 AM) Platelet [150-400 403 10*3/uL 10*3/uL] *HI* (09/03/16 11:15 AM) MPV [8.8-14.8 fL] 12.1 fL (09/03/16 11:15 AM) Immature 0.2 % Granulocytes (09/03/16:15 AM) [0.0-1.0 %] Neutrophils [51-75 71 % %] (09/03/16 11:15 AM) Lymphocytes [20-46 19 % %] *LOW* (09/03/16:15 AM) Monocytes [4-11 %] 8 % (09/03/16:15 AM) Eosinophils [0-4 %] 2 % (09/03/16:15 AM) Basophils [0-2 %] 1 % (09/03/16 11:15 AM) Neutro Absolute 7.14 [1.90-7.00] *HI* (09/03/16:15 AM) Lymph Absolute 1.90 [0.80-3.30] (09/03/16 11:15 AM) Ida Absolute 0.77 [0.30-1.00] (09/03/16 11:15 AM) Eos Absolute 0.20 [0.00-0.50] (09/03/16 11:15 AM) Baso Absolute 0.05 [0.00-0.20] (09/03/16 11:15 AM) Chemistry Most recent to 1 oldest [Reference Range]: Sodium Lvl [135-144 140 mEq/L mEq/L] (09/03/16 11:15 AM) Potassium Lvl 4.4 mEq/L [3.5-5.2 mEq/L] (09/03/16 11:15 AM) Chloride [99-111 101 mEq/L mEq/L] (09/03/16 11:15 AM) CO2 [22-31 mEq/L] 28 mEq/L (09/03/16 11:15 AM) AGAP [3-20] 11 (09/03/16 11:15 AM) BUN [10-20 mg/dL] 14 mg/dL (09/03/16 11:15 AM) Glucose Lvl [70-99 118 mg/dL mg/dL] *HI* (09/03/16 11:15 AM) Creatinine Lvl 0.84 mg/dL [0.57-1.11 mg/dL] (09/03/16 11:15 AM) eGFR [>60 mL/min] >60 mL/min 1 (09/03/16 11:15 AM) Calcium Lvl 10.3 mg/dL 2 [8.4-10.2 mg/dL] *HI* (09/03/16 11:15 AM) 1Result Comment: Multiply eGFR results by 1.21 for race. 2Result Comment: Please note reference range change effective 08/10/2016. Urinalysis Most recent to 1 oldest [Reference Range]: UA Color Yellow (09/03/16 11:27 AM) UA Appear Sl Cloudy (09/03/16 11:27 AM) UA pH [5.0-8.0] 7.5 (09/03/16 11:27 AM) UA Leuk Est Trace [Negative] *ABN* (09/03/16 11:27 AM) UA Nitrite Negative [Negative] (09/03/16 11:27 AM) UA Protein Negative [Negative] (09/03/16 11:27 AM) UA Glucose Negative [Negative] (09/03/16 11:27 AM) UA Ketones Negative [Negative] (09/03/16 11:27 AM) UA Urobilinogen 0.2 mg/dL [<=1.0 mg/dL] (09/03/16 11:27 AM) UA Bili [Negative] Negative (09/03/16 11:27 AM) UA Blood [Negative] Trace *ABN* (09/03/16 11:27 AM) UA Spec Grav 1.020 [1.003-1.030] (09/03/16 11:27 AM) Type Clean Catch (09/03/16 11:27 AM) UA WBC [0-4] 0-2 (09/03/16 11:27 AM) UA RBC [0-2] 2-5 (09/03/16 11:27 AM) Epithelial Cells 10-20 (09/03/16 11:27 AM) UA Bacteria Occasional *ABN* (09/03/16 11:27 AM) UA Yeast Present *ABN* (09/03/16 11:27 AM) Immunizations Given and Recorded Vaccine Date Status [...] virus vaccine 05/04/70 Recorded pneumococcal 13-valent conjugate vaccine2 08/16/16 Recorded pneumococcal 13-valent conjugate vaccine 08/30/14 Given pneumococcal 23-polyvalent vaccine 11/14/09 Recorded rubella virus vaccine 02/01/75 Recorded tetanus-diphth toxoids (Td) adult/adol 05/08/05 Recorded 1Location History: See scanned document 2Location History: [place] [facility] [place] Procedure Date Related Diagnosis Body Site Total knee arthroplasty1 08/16/16 Monafilament Examination 08/23/11 Lid Surgery - lower 09/2005 Lid Surgery - upper 03/2005 gall bladder 2004 Carpal tunnel release2 1997 Carpal tunnel release Epistaxis Eye Lid Surgeries Facial Surgery Hysterectomy Hysterectomy Tonsillectomy 1Left total knee arthroplasty 2Both Hands Social History Social History Type Response Smoking Status Never smoker Assessment and Plan Extracted from: Title: Post-procedure Follow Up Author: Michael Mojica MD Date: Impression and Plan Diagnosis Benign essential hypertension (disorder) ([id number]-[id number] I10, Discharge, Medical). DM II [Diabetes mellitus type II] WO CMP NT [facility] (IWT69-YN E11.9, Discharge , Medical). Hyperthyroidism (ZOM37-NS E05.90, Discharge, Medical). Postoperative anemia (IGL38-WN D64.9, Discharge, Medical). S/P left knee surgery (ABX53-YZ Z98.890, Discharge, Medical). Urine frequency (FRR19-SV R35.0, Discharge, Medical). Orders Orders (Selected) Outpatient Orders Future (On Hold) BMP: CBC w/ Differential: Urinalysis with Culture if Indicated: .
--- OUTSIDE RECORDS SUMMARY | 2016-10-17 18:57 | XMS REPORT | Referral Summary ---
Author Author [facility] Organization [facility] Address Unknown Phone Unavailable Care Team Providers Care Meal Room Hand Name Role Phone Blaze Mojica Primary Care Physician [phone] Encounter VC Date(s): 08/07/16 - 08/07/16 [facility] [address] [place] [address] Discharge Diagnosis: Yeast infection of the skin Discharge Diagnosis: Benign essential hypertension (disorder) Discharge Disposition: 01-Home or Self Care Attending Physician: Michael Mojica MD Admitting Physician: Michael oMjica MD Vital Signs Most recent to 1 oldest [Reference Range]: Peripheral Pulse 82 bpm Rate [60-100 bpm] (08/07/16 2:06 PM) Blood Pressure 190/80 mmHg [90-140/60-90 mmHg] *HI* (08/07/16 2:06 PM) Problem List Condition Effective Dates Status Health Status Informant Acute low back Active pain(Confirmed) Alopecia(Confirmed) Active Benign essential Active hypertension (disorder)(Confirmed ) BPV (benign Active positional vertigo)(Confirmed) CTS (carpal tunnel Active syndrome)(Confirmed) Cataracts(Confirmed) 2000 Active DM II [Diabetes Active mellitus type II] WO CMP NT [facility](Confirmed) Blood Clots Active Lungs/Legs(Confirmed )1 Thyroid Active disease/goiter(Confi rmed) GERD without Active esophagitis(Confirme d) [facility] current Active use of anticoagulant(Confir med) Hearing [...] Daily, # 30 tabs, 3 Refill(s), Pharmacy: [facility] Start Date: 08/03/16 Status: Ordered Lantus 100 units/mL subcutaneous solution See Instructions, INJECT 35 UNITS SUB-Q AT BEDTIME, # 10 mL, eRx: [facility] [id number] Start Date: 07/30/16 Status: Ordered levothyroxine 50 mcg (0.05 mg) oral tablet See Instructions, TAKE 1 TABLET BY MOUTH DAILY, # 90 tabs, 1 Refill(s), eRx: [facility] [id number], TAKE 1 TABLET BY MOUTH DAILY Start Date: 04/09/16 Status: Ordered losartan 100 mg oral tablet See Instructions, TAKE 1 TABLET BY MOUTH EVERY DAY, # 90 tabs, eRx: [facility] [id number] Start Date: 07/27/16 Status: Ordered losartan 100 mg oral tablet See Instructions, TAKE 1 TABLET BY MOUTH EVERY DAY, # 90 tabs, eRx: [facility] [id number] Start Date: 07/27/16 Status: Ordered Miscellaneous DME DME Item FREESTYLE LITE TEST STRIPS CHECK BLOOD SUGARS 3 TIMES WEEKLY DX: E11.9, See Instructions, # 100 Each, 2 Refill(s), Pharmacy: [facility], FREESTYLE LITE TEST STRIPS; CHECK BLOOD SUGARS 3 TIMES WEEKLY; DX : E11.9, Supply Start Date: 08/07/16 Status: Ordered multivitamin Daily, 0 Refill(s) Start Date: 01/06/15 Status: Ordered nystatin 100,000 units/g topical powder 1 brinda, Topical, BID, # 15 g, 1 Refill(s), Pharmacy: [facility] [id number] Start Date: 08/07/16 Stop Date: 09/04/16 Status: Ordered pravastatin 40 mg oral tablet See Instructions, TAKE 1 TABLET BY MOUTH AT BEDTIME DAILY, # 90 tabs, 1 Refill(s ), Pharmacy: [facility] [id number], TAKE 1 TABLET BY MOUTH AT BEDTIME DAILY Start Date: 03/06/16 Status: Ordered [employer] SYR/NDL 29G 0.5ML U/F See Instructions, USE TO INJECT LANTUS AT BEDTIME, # 100 unknown unit, eRx: [facility] [id number], USE TO INJECT LANTUS AT BEDTIME Start Date: 05/21/16 Status: Ordered Results No data available for this section Immunizations Given and Recorded Vaccine Date Status [...] smoker Assessment and Plan Extracted from: Title: OV Author: Michael Mojica MD Date: 08/07/16 Impression and Plan Diagnosis Yeast infection of the skin (MEC55-US B37.2, Discharge, Medical). Benign essential hypertension (disorder) (EJD72-EO I10, Discharge, Medical). Orders Orders (Selected) Prescriptions Prescribed nystatin 100,000 units/g topical powder: 1 brinda, Topical, BID, 15 g, 1 Refill(s).
[2016-10-17 19:30] VITALS: Ht 175.3 cm; Wt 108.6 kg
--- NOTE | 2016-10-17 19:44 | NUR ---
BLOOD SUGAR FSBS: 139
[2016-10-17] MEDS ORDERED: ACET325T51 PO (19:45)
--- NOTE | 2016-10-17 19:47 | ERPDOC ---
Departure Disposition Decision Date: Oct 17, 2016 Disposition Decision Time: 22:39 Disposition: 01 DISCHARGED HOME, SELF-CARE Impression Impression Impression: Primary Impression: Umbilical hernia Obstruction and gangrene presence: without obstruction or gangrene Qualified Codes: K42.9 - Umbilical hernia without obstruction or gangrene Severity: Moderate Condition: Stable Seen By: Physician only Referrals: VALERIE FINCH MD (Family) Follow-up for discussion of referral to surgery Patient Instructions: Umbilical Hernia (ED) Problems/Meds/Labs Reviewed?: Yes Medications reviewed and manag: Yes Follow up care ordered?: Yes Mental Status: Alert, Oriented Scripts Tramadol HCl (Tramadol HCl) 50 Mg Tablet 1-2 TAB PO Q6H Y for PAIN, #20 TAB Prov: ZACK CASEY MD 10/17/16 HPI - Abdominal Pain General Chief Complaint: Abdominal Pain Stated Complaint: SEVERE ABDOMINAL PAIN Time Seen by Provider: 19:47 HPI - Abdominal Pain Allergies: Coded Allergies: opium (Verified Allergy, Severe, 10/17/16) FROM PAREGORIC chlorpheniramine (Verified Allergy, Unknown, 10/17/16) chlorpheniramine maleate (Verified Allergy, Unknown, 10/17/16) dextromethorphan HBr (Verified Allergy, Unknown, 10/17/16) guaifenesin (Verified Allergy, Unknown, 10/17/16) paregoric (Verified Allergy, Unknown, difficulty breathing, 10/17/16) hydrochlorothiazide (Verified Adverse Reaction, Unknown, COUGH, 10/17/16) PER H&P DATED 08-03-16 lisinopril (Verified Adverse Reaction, Unknown, COUGH, 10/17/16) PER H&P DATED 08/03/16 Past History Past Medical History Metabolic: diabetes, hypercholesterolemia, hypertension, hypothyroidism Cardiac: echocardiogram Respiratory: pulmonary embolus Surgical History General: gallbladder, tonsils Reproductive/: hysterectomy Family History Family PMH: FOUND: diabetes, hypertension Vaccines Hx Influenza Vaccination: Yes (2016) Hx Pneumococcal Vaccination: No Social History Does patient use chewing tobac: No Second Hand Exposure: No Substance Use Type: does not use Physical Exam General Vitals and Pain First Documented Vital Signs Date Time Temp Pulse Resp B/P Pulse Ox O2 Delivery O2 Flow Rate FiO2 10/17/16 19:30 98.2 90 16 173/74 96 Room Air Weight: Kilograms: 108.600 Height (feet): 5 Height (inches): 9.00 Triage Pain Scale: Progress Results/Orders Orders Procedure Category Date Status Time Bgm (Ed) EDM 10/17/16 Transmitted 19:42 Iv Lock (Ed Only) EDM 10/17/16 Transmitted 20:08 Cbc W/Auto LAB 10/17/16 Complete Diff-Reflex Manual 20:08 Cmp - Comprehensive LAB 10/17/16 Complete Metabolic 20:08 Lipase LAB 10/17/16 Complete 20:08 Ua, Dip Wreflex LAB 10/17/16 Complete Microsc & Government Relations Manager 20:08 Normal Saline (Normal PHA 10/17/16 Complete Saline Iv) 20:08 Morphine Sulfate PHA 10/17/16 Complete (Morphine) 20:15 Nothing By Mouth (Ed EDM 10/17/16 Verified Only) 20:08 Ct Abd/Pelvis CT 10/17/16 Logged W/Contrast Only 20:43 Iohexol (Omnipaque) PHA 10/17/16 Complete 21:01 Normal Saline (Ns) PHA 10/17/16 Complete 21:01 Saline Flush (Iv PHA 10/17/16 Complete Flush) 21:01 Lab Results Laboratory Tests Test 10/17/16 19:46 10/17/16 19:53 10/17/16 20:18 Glucometer 139mg/dL Urine Collection Type Voided-not cc-midstr Urine Color Yellow Urine Turbidity Clear Urine pH 5.5 Urine Specific Cochran 1.010 Urine Protein Negative Urine Glucose (UA) Negative Urine Ketones Negative Urine Blood Negative Urine Nitrite Negative Urine Bilirubin Negative Urine Urobilinogen 0.2EU/DL Urine Leukocyte Esterase Negative Urinalysis Comment Microscopic not ind. White Blood Count 10.6T/MM3 Red Blood Count 4.31M/MM3 Hemoglobin 14.6GM/DL Hematocrit 44.3% Mean Corpuscular Volume 102.8UM3 Mean Corpuscular Hemoglobin 33.9UUG Mean Corpuscular Hemoglobin Concent 33.0GM/DL RDW Standard Deviation 45.8FL Platelet Count 229T/MM3 Mean Platelet Volume 12.1UM3 Immature Granulocyte % (Auto) 0.2% Neutrophils (%) (Auto) 62.7% Lymphocytes (%) (Auto) 29.2% Monocytes (%) (Auto) 6.2% Eosinophils (%) (Auto) 1.4% Basophils (%) (Auto) 0.3% Absolute Immature Granulocyte (auto 0.02T/MM3 Absolute Neutrophils (auto) 6.6T/MM3 Absolute Lymphocytes (auto) 3.1T/MM3 Absolute Monocytes (auto) 0.7T/MM3 Absolute Eosinophils (auto) 0.2T/MM3 Absolute Basophils (auto) 0.0T/MM3 Turbidity < 20 Sodium Level 147MEQ/L Potassium Level 3.8MEQ/L Chloride Level 104MEQ/L Carbon Dioxide Level 28MEQ/L Anion Gap 15MEQ/L Blood Urea Nitrogen 19.0MG/DL Creatinine 0.7MG/DL Glomerular Filtration Rate Calc 82 BUN/Creatinine Ratio 27RATIO Glucose Level 139MG/DL Calculated Osmolality 286MOSM/KG Calcium Level 10.0MG/DL Total Bilirubin 0.60MG/DL Icterus Index < 2 Aspartate Amino Transf (AST/SGOT) 25U/L Alanine Aminotransferase (ALT/SGPT) 32U/L Alkaline Phosphatase 71U/L Total Protein 7.8G/DL Albumin 4.3G/DL Globulin 3.5G/DL Albumin/Globulin Ratio 1.2RATIO Lipase 78U/L Chemistry Specimen Hemolysis < 15 Medications Current ED Medications Sodium Chloride (Normal Saline IV) 1,000 ml @ 999 mls/hr Q1H1M ONCE IV Last administered on 10/17/16t 20:22; Start 10/17/16 at 20:08; Stop 10/17/16 at 21:08 ; Status DC Morphine Sulfate (Morphine) 2 mg O ONCE IV ; Start 10/17/16 at 20:15; Stop 06/23 at 20:16; Status DC Iohexol 1 bottle 1 bottle STK-MED ONCE .ROUTE ; Start 10/17/16 at 21:01; Stop at 21:02; Status DC Sodium Chloride (NS) 100 ml @ As Directed STK-MED ONCE .ROUTE ; Start 10/17/16 at 21:01; Stop 10/17/16 at 21:02; Status DC Sodium Chloride (Iv Flush) 10 ml STK-MED ONCE .ROUTE ; Start 10/17/16 at 21:01; Stop 10/17/16 at 21:02; Status DC ZACK CASEY MD Oct 17, 2016 19:47
--- NOTE | 2016-10-17 19:48 | NUR ---
BATHROOM AMBULATED TO BATHROOM TO OBTAIN URINE SAMPLE.
--- NOTE | 2016-10-17 19:53 | NUR ---
URINE URINE SPECIMEN COLLECTED, LABELED, AND WALKED TO LAB.
--- NOTE | 2016-10-17 20:06 | NUR ---
PROVIDER DR CASEY IN TO SEE PATIENT.
[2016-10-17] MEDS ORDERED: NORMAL SALINE 1,000 ML IV ONE (20:08)
[2016-10-17 20:14] LABS: BLOOD, URINE NEGATIVE (NEGATIVE); COLOR,URINE YELLOW (YELLOW); LEUKOCYTE ESTERASE ,URINE NEGATIVE (NEGATIVE); NITRITE,URINE NEGATIVE (NEGATIVE); UROBILINOGEN,URINE 0.2 EU/DL (NORMAL)
[2016-10-17] MEDS ORDERED: MORPHINE SULFATE 2 MG SYRINGE IV ONE (20:15)
--- OUTSIDE RECORDS SUMMARY | 2016-10-17 20:25 | XMS REPORT | Continuity of Care Document ---
Author Author [facility] Organization [facility] Address Unknown Phone Unavailable Allergies Medications Problems Procedures Results Encounters ACCT No. Visit Date/Time Discharge Status Pt. Type Provider Facility Loc./Unit Complaint [id number] 09/24/2013 14:09:00 09/24/2013 23 :59:59 CLS Outpatient [id number] 09/03/2013 13:36:00 09/03/2013 23 :59:59 CLS Outpatient [id number] 08/10/2013 11:54:00 08/10/2013 23 :59:59 CLS Outpatient [id number] 06/01/2013 10:56:00 06/01/2013 23 :59:59 CLS Outpatient
[2016-10-17 20:29] LABS: BASOPHILS % (AUTO) 0.3 % (0-2); EOSINOPHILS # (AUTO) 0.2 T/MM3 (0-0.5); EOSINOPHILS % (AUTO) 1.4 % (0-4); HCT - HEMATOCRIT 44.3 % (36-46); HGB - HEMOGLOBIN 14.6 GM/DL (12-16); IMMATURE GRANULOCYTE # (AUTO) 0.02 T/MM3 (0.00-0.03); IMMATURE GRANULOCYTE % (AUTO) 0.2 % (0.0-0.5); LYMPHOCYTES # (AUTO) 3.1 T/MM3 (1-4.8); LYMPHOCYTES % (AUTO) 29.2 % (23-45); MEAN CORPUSCULAR HGB 33.9 UUG (26-34); MEAN CORPUSCULAR VOLUME 102.8 UM3 (80-100); MEAN PLATELET VOLUME 12.1 UM3 (9.4-12.4); MONOCYTES # (AUTO) 0.7 T/MM3 (0-0.8); MONOCYTES % (AUTO) 6.2 % (0-9.0); NEUTROPHILS #(AUTO)-ABSOLUTE 6.6 T/MM3 (1.8-7.7); NEUTROPHILS % (AUTO) 62.7 % (33-66); RED BLOOD COUNT 4.31 M/MM3 (4.00-5.20); WBC - WHITE BLOOD COUNT 10.6 T/MM3 (4.5-11.0)
[2016-10-17 20:41] LABS: ALBUMIN 4.3 G/DL (3.5-5.0); ALBUMIN/GLOBULIN RATIO 1.2 RATIO (1.1-2.2); ALKALINE PHOSPHATASE 71 U/L (38-126); ALT (SGPT) 32 U/L (9-52); ANION GAP 15 MEQ/L (5-15); AST (SGOT) 25 U/L (14-36); BUN/CREATININE RATIO 27 RATIO (6-26); CHLORIDE 104 MEQ/L (98-107); CO2 - CARBON DIOXIDE 28 MEQ/L (22-30); CREATININE 0.7 MG/DL (0.7-1.2); GLOMERULAR FILTRATION RATE 82; GLUCOSE 139 MG/DL (65-110); LIPASE 78 U/L (23-300); POTASSIUM 3.8 MEQ/L (3.6-5); SODIUM 147 MEQ/L (134-144); TOTAL PROTEIN 7.8 G/DL (6.3-8.2)
[2016-10-17] MEDS ORDERED: IOHEXOL 300 MG/ML 100ml INJECTION ONE (21:01)
[2016-10-17] MEDS ORDERED: SALINE FLUSH 10ml SYRINGE ONE (21:01)
[2016-10-17] MEDS ORDERED: NORMAL SALINE 100 ML ONE (21:01)
[2016-10-17] MEDS ORDERED: TRAM50TA4 PO (22:40)
[2016-10-17] MEDS ORDERED: TRAMADOL 50mg TAB #6 (PrePack) SENT HOME ONE (22:45)
[2016-10-17 22:52] VITALS: BP 156/71; PULSE 87; RESP 16; TEMP 98.2; O2SAT 97
--- NOTE | 2016-10-18 08:13 | DI ---
Indication: ITS.REASON: left lower quadrant abdominal pain umbilical hernia rule out inca PROCEDURE: CT ABD/PELVIS W/CONTRAST ONLY: Encounter: Initial Comparison: None Technique: Axial CT images were performed through the abdomen and pelvis after the administration of intravenous contrast. Coronal and sagittal two-dimensional reformats. Automated Exposure Control and Iterative Reconstruction dose reducing techniques were utilized. Contrast: Omnipaque 300 100 mL Findings: Mild atelectasis in the lung bases. The liver, gallbladder, spleen, pancreas and adrenal glands are within normal limits. Small left renal cyst. Kidneys are otherwise unremarkable. No abdominal or pelvic lymphadenopathy. Large fat-containing umbilical hernia. No evidence of a bowel obstruction. The appendix is normal. Bone windows show degenerative changes and scoliosis in the spine. The hernia sac measures approximately 7.3 cm in diameter with a fascial defect opening of 2.7 cm. Impression: Prominent fat-containing umbilical hernia. There is a preliminary report by virtual radiologic. .
== END 2016-10-17 22:52 | disposition home or self-care (01) ==
LOC: ED 18:50
DX: K42.9 Umbilical hernia without obstruction or gangrene (principal); E11.9 Type 2 diabetes mellitus without complications; Z79.4 Long term (current) use of insulin
CPT/HCPCS: 74177; 80053; 81003; 82948; 83690; 85025; 96360; 99284; A9270; J7030; J7050; Q9967

== ENCOUNTER 2016-11-23 10:10 | Day surgery (SDC) | payer MEDICARE, BC ==
[~2016-11-23] VITALS: Ht 175.3 cm; Wt 106.8 kg
[2016-11-23] VITALS (31 sets, daily range): BP systolic 121–159; BP diastolic 56–77; PULSE 69–109; RESP 8–23; TEMP 96.6–98.5; O2SAT 87–99; Ht 175.3 cm; Wt 106.8 kg
[~2016-11-23 10:10] MED LIST changes: -ACET-2321 PO; +ACET325T51 PO; +CEFAZOLIN 1 GRAM INJECTION IV ONE; -ENOX40DI SQ; +LIDOCAINE 1% (10mg/ml) 2ml SDV INJ ONE; -POLY17PO18 PO; -TRAM50TA53 PO; -WARF5TAB76 PO
[2016-11-23 10:58] LABS: ANION GAP 11 MEQ/L (5-15); BUN/CREATININE RATIO 24 RATIO (6-26); CALCIUM 9.7 MG/DL (8.4-10.2); CHLORIDE 104 MEQ/L (98-107); CO2 - CARBON DIOXIDE 31 MEQ/L (22-30); CREATININE 0.7 MG/DL (0.7-1.2); GLOMERULAR FILTRATION RATE 82; GLUCOSE 125 MG/DL (65-110); SODIUM 146 MEQ/L (134-144)
[2016-11-23] MEDS ORDERED: ASPI-557 PO (11:03)
[2016-11-23] MEDS ORDERED: PROPOFOL 200mg 20 ML IV ONE (11:30)
[2016-11-23] MEDS ORDERED: LIDOCAINE 2% (20mg/ml) 5ml PF SDV ONE (11:30)
[2016-11-23] MEDS ORDERED: ROCURONIUM 50mg/5ml INJECTION IV ONE (11:30)
[2016-11-23] MEDS ORDERED: FENTANYL 250mcg/5ml INJECTION ONE (11:30)
[2016-11-23] MEDS: LR 1,000 ML IV SCH (11:47)
[2016-11-23] MEDS ORDERED: BUPIVACAINE 0.25%/EPI 1:200,000 30ml SDV INJ ONE (12:26)
--- NOTE | 2016-11-23 12:36 | ANESPREOP ---
Anesthesia Record Date and Time DATE: 11/23/16 TIME: 12:34 Pre-Op Diagnosis Umbilcical hernia Proposed Surgical Procedure ROBOTIC ASSISTED LAPAROSCOPIC UMBILICAL HERNIA NPO since: [place] Allergies: Coded Allergies: opium (Verified Allergy, Severe, 11/23/16) FROM PAREGORIC chlorpheniramine (Verified Allergy, Unknown, 11/23/16) chlorpheniramine maleate (Verified Allergy, Unknown, 11/23/16) dextromethorphan HBr (Verified Allergy, Unknown, 11/23/16) guaifenesin (Verified Allergy, Unknown, 11/23/16) paregoric (Verified Allergy, Unknown, difficulty breathing, 11/23/16) hydrochlorothiazide (Verified Adverse Reaction, Unknown, COUGH, 11/23/16) PER H&P DATED 08-03-16 lisinopril (Verified Adverse Reaction, Unknown, COUGH, 11/23/16) PER H&P DATED 08/03/16 Ht/Wt/BMI Height: 5 ' 9.00 " Weight: 106.300 kg BMI: 34.6 kg/m2 Vital Signs Date Time Temp Pulse Resp B/P Pulse Ox O2 Delivery O2 Flow Rate FiO2 11/23/16 10:32 98.5 84 17 159/77 94 Room Air Medications Inpatient Medications Current Medications Medications (Trade) Dose Ordered Sig/Kathy Start Time Stop Time Status Last Admin Dose Admin Lactated Ringer's (Lactated Ringers) 1,000 ml @ 30 mls/hr Q24H 11/23/16 07:00 11/23/16 11:47 30 MLS/HR Acetaminophen (Acetaminophen) 325 Mg Tablet, 2 TAB PO QID PRN for PAIN, ( Reported) Last Taken: on Unknown Date & Time Aspirin (Aspir 81) 81 Mg Tablet.dr, 1 TAB PO DAILY, (Reported) Last Taken: on 11/22/16 0800 Calcium Carbonate/Vitamin D3 (Calcium 600 + D Tablet) 1 Tab Tablet, 1 TAB PO BID, (Reported) Last Taken: on 11/22/16 2000 Dextran 70/Hypromellose (Tears Pure Drops) 15 Ml Drops, 1 DROP BOTH EYES DAILY, (Reported) Last Taken: on 11/23/16 0800 Insulin Glargine,Hum.rec.anlog (Lantus) 100 Unit/Ml Inj, 35 UNIT SQ HS, (Reported) Last Taken: on 11/22/16 2100 Levothyroxine Sodium (Synthroid) 50 Mcg Tablet , 50 MCG PO DAILY, (Reported) Last Taken: on 11/23/16 0800 Losartan Potassium (Losartan Potassium) 100 Mg Tablet, 100 MG PO DAILY, (Reported) Last Taken: on 11/23/16 0800 Multivitamins (Multivitamin) 1 Tab Tablet, 1 TAB PO DAILY, (Reported) Last Taken: on 11/22/16 0800 Pravastatin Sodium (Pravastatin Sodium) 40 Mg Tablet, 40 MG PO DAILY, (Reported) Last Taken: on 11/22/161999 Sitagliptin Phosphate (Januvia) 100 Mg Tablet, 100 MG PO DAILY, (Reported) Last Taken: on 11/22/16 0800 Currently on Beta Daria: No Medical/Surgical History Anesthesia PMH: Reports: *Diabetes (TYPE 2), *Dyspnea (AT NIGHT), * Hypertension (ON MEDICATION), *CT (DR. SÁNCHEZ STATES PT HX OF POSSIBLY DID HAVE A SILENT HEART ATTACK"), Arthritis (KNEES,LOWER BACK,R.HIP,R.SHOULDER), Deep Vein Thrombosis (PE 2010--on warfarin for 6 months), Pneumonia (2008), Reflux ( PER H&P), Sleep Apnea, Denies: *Angina, Anesthesia Reactions (NO AIRWAY ISSUES) , Asthma, Blood Transfusion Reac, CHF, COPD, CVA/Stroke/TIA, Cancer, Clotting Problems, Glaucoma, Hepatitis, Hiatal Hernia, Malignant Hyperthermia, Pacemaker , Renal Disease, Rheumatic Fever, Seizures, Thyroid Disease (ON MEDICATION- FAMILY HISTORY, TAKEN PREVENTIVE), Tuberculosis Smoking Status: Never smoker Use Chewing Tobacco?: No Second Hand Exposure: No Substance Use Type: does not use Alcohol Intake: none HX of Last Menstrual Period: HYST. Past Surgical History Orthopedic Surgeries: Yes - LEFT TOTAL KNEE Abdominal Surgeries: Yes - FERDIN[place]-CTR; Lt Trigger Finger Release Genitourinary Surgeries: No Cardiac Surgeries: No Endocrine Surgeries: No Reproductive Surgeries: No - HYSTERECTOMY Neurological Surgeries: No Ear Surgeries: No Nose Surgeries: No Throat Surgeries: Yes - T&A YEARS AGO Other Surgeries: No Anesthesia Adverse Reactions: FOUND none Pertinent Findings Laboratory Tests 11/23/16 10:44 EKG Rhythm: Sinus Rhythm Physical Exam Respiratory: Bilat breath sounds equal, Lungs clear Cardiovascular: FOUND Regular rate, rhythm, FOUND No murmur Airway Assessment Mallampati Score: II TMD: 3 Fingerbreadths Neck Extension: Good Overall Assessment: No Airway Concerns ASA: 2 Plan Anesthesia Plan: GETA Discussion Discussed risks/options/alternatives of anesthesia and questions answered. Patient consents. Nursing pain assessment noted. Attestation Statement Prior to the delivery of any anesthetic medication, I examined the patient, developed the plan, obtained the patient's consent and discussed the risk and benefits of the procedure with the patient/guardian. NISHANT COFFMAN CRNA November 23, 2016 12:36
[2016-11-23] MEDS ORDERED: MIDAZOLAM 2mg/2ml INJECTION ONE (12:48)
[2016-11-23] MEDS ORDERED: SEVOFLURANE 250 ML LIQUID IH ONE (13:03)
[2016-11-23] MEDS ORDERED: EPHEDRINE SULFATE 50mg/ml INJECTION ONE (13:07)
[2016-11-23] MEDS ORDERED: SALINE FLUSH 10ml SYRINGE ONE (13:07)
[2016-11-23] MEDS ORDERED: DEXAMETHASONE 4mg/ml - 1ml INJECTION ONE (13:26)
[2016-11-23] MEDS ORDERED: ONDANSETRON 4mg/2ml INJECTION ONE (13:26)
[2016-11-23] MEDS ORDERED: NEOSTIGMINE 10mg/10ml INJECTION ONE (14:26)
[2016-11-23] MEDS ORDERED: GLYCOPYRROLATE 0.4mg/2ml INJECTION ONE (14:26)
[2016-11-23] MEDS ORDERED: HYDROMORPHONE 2mg/ml INJECTION ONE (14:40)
--- NOTE | 2016-11-23 14:53 | GSPOSTPROC ---
Immediate Operative Note DATE: 11/23/16 TIME: 14:52 Postop Diagnosis: Ventral and umbilical hernias Surgery Type: Laparoscopic, Robotic Surgical Procedure: Hernia Repair Hernia Type: Umbilical, Ventral Surgeon: Katia Assisting Surgeon: Mio Mai Anesthesia: Local, General ASA: 2 RONNY MAI POLICY DIRECTOR November 23, 2016 14:53
[2016-11-23] MEDS ORDERED: ONDANSETRON 4mg/2ml INJECTION IV PRN ×2 (15:00→15:15)
[2016-11-23] MEDS ORDERED: KETOROLAC 15mg/ml INJECTION IV PRN (15:00)
[2016-11-23] MEDS ORDERED: METOCLOPRAMIDE 10mg/2ml INJECTION IV PRN (15:00)
[2016-11-23] MEDS ORDERED: MORPHINE SULFATE 4 MG SYRINGE IV PRN (15:00)
[2016-11-23] MEDS: HYDROMORPHONE 2mg/ml INJECTION IV PRN ×4 (15:10→15:44)
--- NOTE | 2016-11-23 15:55 | ANESPO ---
Post-Op Note Date 11/23/16 Time: 15:55 Status Pt Participated in Evaluation: Pt participated in person Vital Signs Date Time Temp Pulse Resp B/P Pulse Ox O2 Delivery O2 Flow Rate FiO2 11/23/16 15:45 87 22 121/56 99 Nasal Cannula 2.00 11/23/16 14:57 97.6 Respiratory Function: Airway patent, Regular respirations Cardiovascular Function: Regular pulse Telemetry Pattern: SR Mental Status: Alert/oriented Pain Level Intensity: 10 Hydration: IV infusing Complications during Recovery None apparent Follow-Up Instructions Instructions Per Surgeon NISHANT COFFMAN CRNA November 23, 2016 15:55
[2016-11-23] MEDS ORDERED: KETOROLAC 30mg/ml INJECTION IV ONE (16:00)
[2016-11-23] MEDS ORDERED: MORPHINE 10mg/ml vl INJECTION IV PRN (16:15)
--- NOTE | 2016-11-23 16:28 | NUR ---
ADMIT PT TO ROOM 109 PER RR CART. RATES PAIN 01/14. MOVED TO S.U. BED WITH ASSIST OF 3 USING SLIDE BOARD. LAP SITES NOTED TO BE INTACT WITH NO S/SX OF BLEEDING/DEHISCENCE. ABD BINDER IN PLACE.
[2016-11-23] MEDS: NORMAL SALINE 1,000 ML IV SCH (16:36)
[2016-11-23] MEDS ORDERED: POLY17PO18 PO (17:53)
[2016-11-23] MEDS ORDERED: HYDR-4246 PO (17:53)
[2016-11-23] MEDS ORDERED: POLYETHYL.GLYCOL 3350 PACKET 17gm PO ONE ×3 (18:00→21:00)
--- NOTE | 2016-11-23 18:39 | NUR ---
STATUS PT CURRENTLY IN HALLWAY DUE TO CORTEZ WARNING. FAMILY AT BEDSIDE. PT VERBALIZES APPRECIATION THAT SHE CAN NOW HAVE WATER TO DRINK AND CAN LOOK FORWARD TO FOOD SOON. PT STATES PAIN IS ACTUALLY GETTING BETTER. CONTINUES TO C/O MORE PAIN AT [facility].
--- NOTE | 2016-11-23 19:53 | OPNOTEF ---
DATE OF SERVICE 11/23/2016 SURGEON Justin Montalvo MD ORE DRYER Mio Mai APRN PREOPERATIVE DIAGNOSIS Incarcerated supraumbilical/ventral hernia. POSTOPERATIVE DIAGNOSIS Incarcerated supraumbilical/ventral hernia. PROCEDURE Robotic assisted laparoscopic repair of incarcerated ventral/umbilical hernia with incorporation of mesh in a preperitoneal location. ANESTHESIA General endotracheal EBL AND FLUIDS Please see chart. BRIEF HISTORY/INDICATIONS Mrs. Gonzalez is a 76-year-old female who recently presented to my office as a result of a large mass that was causing her an element of discomfort near the level of her umbilicus. Upon examination the patient was found to have about an 8 cm mass near the level of the umbilicus that was not able to be completely reduced. As a result of the above indications, it was recommended to the patient she should undergo an elective repair. Patient presents today to undergo this procedure. FINDINGS Upon laparoscopy, the patient was found to have a fascial defect that extended above the umbilicus several centimeters and also involved a component of the umbilicus as well. There was a large portion of omentum incarcerated within this fascial defect. Omentum was reduced and the defect was closed primarily. Preperitoneal dissection was performed and a piece of propylene mesh was placed in a preperitoneal location covering the defect by several centimeters. Small bowel , omentum, colon, and peritoneal surfaces which were visualized were within normal limits. DESCRIPTION OF PROCEDURE After informed consent was obtained, patient was brought to the operative suite , placed on the table in supine fashion. Abdomen was then prepped and draped in sterile fashion. Formal time-out was then completed. 0.25% Marcaine with epinephrine was injected just beneath the level of the umbilicus. A 4-5 mm incision was then made through the area of analgesia. Veress needle was then introduced through this small incision into the peritoneal cavity. Pneumoperitoneum was established to a patient pressure of 15 mmHg utilizing carbon dioxide. Next 0.25% Marcaine with epinephrine was injected along the left mid abdominal wall out laterally. A 2 cm incision was then made overlying the area of analgesia. A 12 mm port was then placed through the incision in the peritoneal cavity. Laparoscope was then inserted into this port. One could then see the Veress needle as it coursed through the anterior abdominal wall. Veress needle was removed under direct visualization. Additional 10 mm AirSeal assist port was placed within the left upper quadrant. Additional 8 mm da Patrick port was then placed along the left lower quadrant along the lateral abdominal wall. Each port site was preinjected with 0.25% Marcaine with epinephrine and placed under direct visualization. Bed was then flexed and the patient was rotated towards her right. Robot was then docked from the patient's right at a 90 degree angle. Next, fenestrated bipolar grasper was placed in robotic arm #2. Hook cautery was placed within robotic arm #1. Abdominal cavity was explored via the laparoscope. Findings were noted as above. There was a considerable amount of omentum sticking forth through a fascial defect that began at the level of the umbilicus and extended in a cephalad fashion several centimeters. After a moderate amount of dissection, the omentum was able to be completely reduced from the fascial defect. There were some adhesions from her prior surgery within the midline in the lower abdomen. These adhesions were between the anterior abdominal wall and the underlying omentum. These adhesions were taken down under direct visualization. Next the edges of the fascial defect were then dissected out circumferentially and a preperitoneal dissection was performed circumferentially around the fascial defect. Fascial defect itself was on the order of about 4 cm in diameter. Fascial defect was closed primarily in a running fashion utilizing #1 V-Loc suture. Next an 8 cm piece of Ventralex mesh was then brought forth in the operative field. A laparoscopic suture passer was then placed through the anterior abdominal wall overlying the fascial defect. The laparoscopic suture passer was placed through the middle portion of the fascial defect that had now been closed primarily. Tail portions of the mesh were then grasped and brought forth out through a small incision made upon the anterior abdominal wall. The mesh was then secured to the underlying external oblique aponeurosis in a running fashion utilizing a 2-0 V-Loc suture. The mesh itself covered the fascial defect by several centimeters circumferentially. Next the peritoneum was then closed in a running fashion also utilizing a 2-0 V-Loc suture. Each needle that was utilized was removed. Instrument, sponge and needle counts were performed and found to be correct. Attention was directed towards closure. Prior areas of dissection were inspected and found to be hemostatic in nature. Robot was then undocked. Attention was first focused to the camera port site. Camera port was removed and the fascial defect at this location was closed in a trvitw-fu-gwusl fashion utilizing laparoscopic suture passer and 0 Vicryl. Camera port was then replaced and the AirSeal port was then removed from within the left upper quadrant. Fascial opening at this site was also closed in a figure- of-eight fashion with 0 Vicryl and tied securely. Again this was performed utilizing laparoscopic suture passer. Remaining 8 mm port was then removed under direct visualization. Pneumoperitoneum was then released. Camera port along the left lateral mid abdominal wall was then removed. Previously placed figure- of-eight suture was then tied resulting in imbrication of the fascial edges at the port site. All skin incisions were closed in a subcuticular fashion with 4-0 Monocryl. Dermabond was then placed overlying the incisions. The patient was awakened from her anesthetic and sent back to the recovery room once deemed in stable condition. Additionally, it should be noted that Mio Mai APRN, was present throughout the entire case and played a pivotal role in providing assistance and exposure during the course of the procedure. TWIN
[2016-11-23] MEDS: HYDROCODONE/APAP 5 mg/325 mg TABLET PO PRN (21:30)
[2016-11-23] MEDS ORDERED: INSULIN GLARGINE 100 UNIT/ML SQ SCH (22:00)
[2016-11-24] VITALS (7 sets, daily range): BP systolic 109–134; BP diastolic 54–66; PULSE 69–93; RESP 14–18; TEMP 96.7–98.1; O2SAT 90–95
[2016-11-24] MEDS: HYDROCODONE/APAP 5 mg/325 mg TABLET PO PRN ×3 (03:10→13:36)
[2016-11-24] MEDS ORDERED: --POM--LEVOTHYROXINE 50 MCG TABLET PO SCH (06:30)
[2016-11-24] MEDS: LR 1,000 ML IV SCH (08:31)
[2016-11-24] MEDS ORDERED: --POM--LOSARTAN 100 MG TABLET PO SCH (09:00)
[2016-11-24] MEDS ORDERED: SITAGLIPTIN 100 MG PO SCH (09:00)
[2016-11-24] MEDS ORDERED: ARTIFICIAL TEARS 15 ML BOTTLE BOTH EYES SCH (09:00)
[2016-11-24] MEDS: NORMAL SALINE 1,000 ML IV SCH (10:53)
--- NOTE | 2016-11-24 14:02 | NUR ---
DISMISSAL PATIENT DISMISSED TO HOME FOR SELF-CARE TO THE ER ENTRANCE. PATIENT'S SON WAS THE DIRECTOR OF RADIO SERVICES HOME. PT APPEARS TO BE IN NO ACUTE DISTRESS AT TIME OF DISCHARGE. PERSONAL BELONGINGS AND HOME MEDS SENT WITH PATIENT. D/C INSTRUCTIONS REVIEWED PRIOR TO D/C. TOPICS DISCUSSED INCLUDED: MEDICATIONS, S/S TO REPORT, FOLLOW UP APPOINTMENTS, AND INCISION CARE. PT VERBALIZED UNDERSTANDING. IV CATHETER REMOVED BY THIS RN AND IV CATHETER TIP INTACT. ARM BAND REMOVED AND PLACED IN SHRED.
--- NOTE | 2016-11-24 14:36 | PNF ---
DATE 11/24/2016 FINDINGS Mrs. Gonzalez this morning was without specific complaints. She is having some incisional tenderness, as one would expect, near the level of umbilicus. She has been eating without difficulty. VITALS: Afebrile. Normotensive. ABDOMEN: Soft. Minimal incisional tenderness noted. Incisions are clean, dry and intact. There is some ecchymosis around the umbilicus as one would expect postoperatively. This a fairly minimal. ASSESSMENT A 76-year-old female status post robotic-assisted laparoscopic repair of incarcerated ventral/umbilical hernia. Patient currently doing well. PLAN Discharge to home. Please refer to discharge orders if detail is needed. TWIN
[2016-11-25] MEDS ORDERED: CEFAZOLIN 2 G in NORMAL SALINE 100 ML IV ONE (11:00)
== END 2016-11-24 14:02 | disposition home or self-care (01) ==
LOC: SCU 10:10 → SRG 10:15 → SCU 11-24 14:02
PROVIDERS: ATTEND Surgery
DX: K43.6 Other and unspecified ventral hernia with obstruction, without gangrene (principal); K66.0 Peritoneal adhesions (postprocedural) (postinfection); I10 Essential (primary) hypertension; E11.9 Type 2 diabetes mellitus without complications; E03.9 Hypothyroidism, unspecified; K21.9 Gastro-esophageal reflux disease without esophagitis; G47.33 Obstructive sleep apnea (adult) (pediatric); E78.00 Pure hypercholesterolemia, unspecified; E66.3 Overweight; Z79.4 Long term (current) use of insulin; Z79.82 Long term (current) use of aspirin; Z79.899 Other long term (current) drug therapy; Z88.8 Allergy status to other drugs, medicaments and biological substances; Z86.718 Personal history of other venous thrombosis and embolism; Z86.711 Personal history of pulmonary embolism; Z68.33 Body mass index [BMI] 33.0-33.9, adult; Z90.49 Acquired absence of other specified parts of digestive tract; Z90.710 Acquired absence of both cervix and uterus
CPT/HCPCS: 36415; 49653; 80048; 82948; 93005; 94667; 94668; 94762; A9270; J0690; J1100; J1170; J1885; J2250; J2405; J2704; J2710; J3010; J7030; J7120; S2900